=== PATIENT | female | born 1955 | race Caucasian/White ===

== ENCOUNTER 2020-09-22 08:02 | Outpatient (RCR) | payer OTHER, SELFPAY ==
[2020-09-22] MEDS: COVID-19 VACC, MRNA(PFIZER)/PF 30 MCG/0.3 ML SYRINGE IM (11:52)
[2020-10-13] MEDS: COVID-19 VACC, MRNA(PFIZER)/PF 30 MCG/0.3 ML SYRINGE IM (11:47)
== END 2020-12-15 23:59 ==
LOC: IMMUN 08:02
PROVIDERS: Referring Provider Family Medicine; Visit Provider Family Medicine
DX: Z23 Encounter for immunization (principal)
CPT/HCPCS: 0001A; 0002A; 91300

== ENCOUNTER → 2022-11-10 | Outpatient (CLI) | payer MEDICARE, OTHER, SELFPAY ==
--- NOTE | 2022-11-10 07:16 | MRI_ITS ---
EXAM: MR HEAD WITHOUT AND WITH INTRAVENOUS CONTRAST CLINICAL INDICATION: DIZZINESS, UNSTEADINESS TECHNIQUE: Multiplanar and multisequence MR images of the brain were obtained without and with intravenous contrast. CONTRAST: 9 ML IV CLARISCAN COMPARISON: No relevant prior studies available. FINDINGS: BRAIN AND EXTRA-AXIAL SPACES: Following IV contrast administration, there are no abnormally enhancing lesions intra-axially and extra-axially. No intra- or extra-axial hemorrhage. No evidence of acute infarct. No intracranial mass or mass effect. There is preservation of the hayes/white matter interface. Posterior fossa structures are unremarkable. Ventricles are appropriate for age. No hydrocephalus. Basal cisterns are patent. No focal signal abnormalities throughout the brain parenchyma in all pulse sequences. SELLA: Unremarkable. Normal sella turcica, pituitary gland, infundibular stalk, optic chiasm and hypothalamus. AUDITORY SYSTEM: Unremarkable. The internal auditory canals are patent. BONES/JOINTS: Unremarkable. No discrete lytic or blastic abnormalities. SINUSES: Unremarkable as visualized. Clear. MASTOID AIR CELLS: Unremarkable as visualized. Clear. ORBITS: Unremarkable as visualized. Both globes, extraocular muscles, optic nerves and retrobulbar fat appear unremarkable. VASCULATURE: Unremarkable as visualized. Normal flow voids in the major intracranial circulation. MRI/Brain W/WO Contrast IMPRESSION: Normal MRI brain with and without contrast. Electronically Signed: Rafael Castellano MD at 15:09 EDT ,
[2022-11-10 08:23] LABS: CREATININE FINGERSTICK < 0.90 mg/dL (0.55-1.02); EGFR FINGERSTICK > 60 mL/min (>60)
== END | disposition home or self-care (01) ==
LOC: MRI 07:11
PROVIDERS: PCP Family Medicine
DX: R26.81 Unsteadiness on feet (principal); R42 Dizziness and giddiness
CPT/HCPCS: 70553; A9575

== ENCOUNTER → 2023-05-16 | Outpatient (CLI) | payer MEDICARE, OTHER, SELFPAY ==
[2023-05-16 15:32] LABS: Vitamin D,25 Hydroxy 67.1 ng/mL
[2023-05-16 15:45] LABS: ALB/GLOB Ratio 0.7 RATIO (0.9-2.4); AST(SGOT) 64 U/L (15-37); Alanine Aminotransfer ALT/SGPT 56 U/L (13-56); Albumin, Serum 2.9 g/dL (3.2-5.0); Alkaline Phosphatase 94 U/L (45-117); Anion Gap 1 (5-15); BUN 17 mg/dL (7-18); BUN/Creat Ratio 34.1 RATIO (10-20); Calcium,Total 8.6 mg/dL (8.5-10.1); Chloride 105 mmol/L (98-107); Cholesterol 170 mg/dL (200); EST Glomerular Filtration Rate 131 mL/min (>60); Est Glom Filt Rate - Afr Amer 159 mL/min (>60); Globulin 4.2 g/dL (2.2-4.2); Glucose 86 mg/dL (74-106); High Density Lipoprotein 32 mg/dL; Potassium 4.4 mmol/L (3.5-5.1); Protein, Total 7.1 g/dL (6.4-8.2); Sodium Level 136 mmol/L (136-145); T4 Free Direct 1.39 ng/dL (0.76-1.46); Thyroid Stim Hormone (TSH) 0.57 uIU/mL (0.358-3.74); Triglycerides 66 mg/dL; Very Low Density Lipoprotein 13 mg/dL (5-40)
== END | disposition home or self-care (01) ==
LOC: MFPLAB 12:25
PROVIDERS: Family Medicine; PCP Family Medicine; Visit Provider Family Medicine
DX: Z13.6 Encounter for screening for cardiovascular disorders (principal)
CPT/HCPCS: 36415; 80053; 80061; 82306; 84439; 84443

== ENCOUNTER → 2023-10-26 | Outpatient (CLI) | payer MEDICARE, OTHER, SELFPAY ==
[2023-10-26 10:51] LABS: Absolute Lymphocyte Count 1.72 X10^3/uL (0.83-4.51); Absolute Neutrophil Count 2.1 X10^3/uL (2.0-7.7); Basophil# 0.05 X10^3/uL; Basophil% 1.1 % (0-1); Eosinophil# 0.12 X10^3/uL; Eosinophils% 2.7 % (0-5); Hematocrit 38.9 % (37-47); Hemoglobin 11.7 g/dL (12.0-15.0); Lymphocyte # 1.72 X10^3/ul (0.83-4.51); Lymphocyte % 38.5 % (19-41); Mean Corp Hgb Conc 30.1 g/dL (32-36); Mean Corpuscular Hgb 26.1 pg (27.0-32.0); Mean Corpuscular Volume 86.6 fL (81-99); Mean Platelet Vol. 11.5 fl (6.2-12.0); Monocyte# 0.51 X10^3/uL; Monocyte% 11.4 % (0-10); NRBC Flagged by Analyzer 0 % (0-5); Neutrophil # 2.06 X10^3/uL (2.7-7.7); Neutrophil % 46.1 % (47-70); Platelet Count 345 K/mm3 (150-450); RBC Distribution Width SD 47.6 fl (35.1-43.9); Red Blood Count 4.49 M/mm3 (4.2-5.4); White Blood Count 4.5 K/mm3 (4.4-11.0)
[2023-10-26 10:53] LABS: Erythrocyte Sedimentation Rate 21 mm/hr (0-30)
[2023-10-26 11:17] LABS: Hepatitis B Surface Antibody Non-Reactive
[2023-10-26 11:29] LABS: ALB/GLOB Ratio 0.6 RATIO (0.9-2.4); AST(SGOT) 45 U/L (15-37); Alanine Aminotransfer ALT/SGPT 46 U/L (13-56); Albumin, Serum 2.9 g/dL (3.2-5.0); Alkaline Phosphatase 116 U/L (45-117); Amylase 356 U/L (25-115); Anion Gap 1 (5-15); BUN 18 mg/dL (7-18); BUN/Creat Ratio 33.2 RATIO (10-20); CRP < 2.90 mg/L (0.0-3.0); Calcium,Total 8.6 mg/dL (8.5-10.1); Chloride 110 mmol/L (98-107); Creatinine, Serum 0.54 mg/dL (0.55-1.02); EST Glomerular Filtration Rate 119 mL/min (>60); Est Glom Filt Rate - Afr Amer 144 mL/min (>60); Ferritin 4 ng/mL (8-252); Globulin 4.5 g/dL (2.2-4.2); Glucose 88 mg/dL (74-106); Iron 57 ug/dL (50-170); Iron Binding Capacity,Total 402 ug/dL (250-450); PERCENT IRON SATURATION 14.2 % (15.0-55.0); Potassium 3.9 mmol/L (3.5-5.1); Protein, Total 7.4 g/dL (6.4-8.2); Sodium Level 139 mmol/L (136-145); Thyroid Stim Hormone (TSH) 1.08 uIU/mL (0.358-3.74)
[2023-10-27 14:09] LABS: ANTINUCLEAR ANTIBODIES DIRECT Negative (Negative); Alpha Antitrypsin Serum 162 mg/dL (101-187); Anti-Mitochondrial AB <20.0 Units (0.0-20.0)
[2023-10-27 15:08] LABS: Anti-Smooth Muscle ABS 8 Units (0-19); Ceruloplasmin 23.9 mg/dL (19.0-39.0); Endomysial Antibody IgA Negative (Negative); HEPATITIS B SURFACE AG Negative (Negative); Hep C Antibodies Non Reactive (Non Reactive); Hepatitis A AB, Total Positive (Negative); Hepatitis A IgM Antibody Negative (Negative); Hepatitis B Core AB IgM Negative (Negative); Immunoglobulin A 946 mg/dL (87-352); t-Transglutaminase IgA >100 U/mL (0-3)
== END | disposition home or self-care (01) ==
LOC: LAB 09:36
PROVIDERS: PCP Family Medicine
DX: R19.7 Diarrhea, unspecified (principal); R79.89 Other specified abnormal findings of blood chemistry
CPT/HCPCS: 36415; 80053; 80074; 82103; 82150; 82390; 82728; 82784; 83516; 83540; 83550; 84443; 85025; 85652; 86038; 86140; 86255; 86706; 86708

== ENCOUNTER → 2023-10-28 | Outpatient (CLI) | payer MEDICARE, OTHER, SELFPAY | END | disposition home or self-care (01) | LOC: LAB 07:35 → LABSPEC 07:37 | PROVIDERS: PCP Family Medicine | DX: R19.7 Diarrhea, unspecified (principal); R79.89 Other specified abnormal findings of blood chemistry | CPT/HCPCS: 82653; 82705; 83630; 83993; 87177; 87209; 87493 ==

== ENCOUNTER → 2023-10-31 | Outpatient (CLI) | payer MEDICARE, OTHER, SELFPAY ==
--- NOTE | 2023-10-31 08:04 | US_ITS ---
STUDY: ABDOMINAL ULTRASOUND - RIGHT UPPER QUADRANT REASON FOR VISIT: Female, 68 years old ELEVATED LFTS/DIARRHEA TECHNIQUE: Ultrasound evaluation of the right upper quadrant was performed with real-time and static hayes-scale imaging. TECHNICAL QUALITY: Adequate. COMPARISON: None. FINDINGS: Liver: The liver measures 14.5 cm. There is normal echogenicity of the liver. The bile ducts are within normal limits. There is hepatic color flow. The direction of portal flow is hepatopetal. There is a simple cyst measuring 1.3 cm x 1.7 cm x 1.2 cm in the right lobe of the liver. Gallbladder: Normal distended gallbladder. The gallbladder wall measures 1 mm. There is a negative sonographic Rivas''s sign. There is no pericholecystic fluid. There are no gallstones. Common Bile Duct (C.B.D.): The common bile duct measures 6 mm. Pancreas: Normal size of the head, body and tail of the pancreas. There is normal echogenicity of the pancreas. There is no demonstrated pancreatic mass or cyst. The pancreatic duct measures 3.2 mm. Right Kidney: Normal size of the right kidney. The right kidney measures 9.9 cm x 4.4 cm x 3.9 cm. Normal renal cortex. The right cortex measures 1 cm. There is no demonstrated renal mass or cyst. There is no right hydronephrosis. US/Abdomen Limited IMPRESSION: Cyst is seen in the right lobe of the liver. Mildly dilated pancreatic duct. Electronically Signed: Tito Shipley MD at 14:42 EDT ,
== END | disposition home or self-care (01) ==
LOC: US 08:02
PROVIDERS: PCP Family Medicine
DX: R19.7 Diarrhea, unspecified (principal); R79.89 Other specified abnormal findings of blood chemistry
CPT/HCPCS: 76705

== ENCOUNTER → 2023-11-03 | Outpatient (CLI) | payer MEDICARE, OTHER, SELFPAY ==
--- NOTE | 2023-11-03 12:48 | CT_ITS ---
STUDY: CT ABDOMEN AND PELVIS WITH CONTRAST REASON FOR EXAM: Female, 68 years old. 4 month history of diarrhea. RADIATION DOSAGE (If Supplied By Facility): CTDIvol = ( 9.13 ) mGy, DLP = ( 231.49 ) mGycm TECHNIQUE: Transaxial images were obtained from the dome of the diaphragm to the symphysis pubis with oral contrast. Oral and amp; IV Readi-CAT and amp; 100mL Isovue-300 was administered. Sagittal and coronal images were reconstructed. Individualized dose optimization techniques were used for this CT. COMPARISON: Comparison is made with prior sonogram of the abdomen dated October 31, 2023. FINDINGS: The visualized lung bases are unremarkable. The visualized portions of the heart are within normal limits. There is decreased attenuation of the liver consistent with steatosis. There is a 1.1 cm x 0.8 cm cyst in the lower aspect of the right lobe of the liver. Mild degree of central intrahepatic biliary ductal dilatation. The proximal portion of the common bile duct has a transverse dimension of 1.05 cm. Normal spleen. Normal pancreas. Normal bilateral adrenal glands. Normal right kidney. Normal left kidney. Normal visualized stomach. Normal small intestine. Normal colon. The patient is status post appendectomy. There is scattered atherosclerotic calcification of the abdominal aorta, without a demonstrated aneurysm. Normal inferior vena cava. Normal retroperitoneum. Normal urinary bladder. There is absence of the uterus consistent with a prior hysterectomy. Normal abdominal wall. Dextroscoliosis. CT/Abdomen/Pelvis WITH Contrast IMPRESSION: Mildly dilated intrahepatic biliary ducts and proximal common bile duct. Small right hepatic cyst. The patient is status post appendectomy and hysterectomy. Electronically Signed: Tito Shipley MD at 14:17 EDT ,
== END | disposition home or self-care (01) ==
PROVIDERS: PCP Family Medicine; Referring Provider Internal Medicine Gastroenterology; Visit Provider Internal Medicine Gastroenterology
DX: R19.7 Diarrhea, unspecified (principal); R79.89 Other specified abnormal findings of blood chemistry; R74.8 Abnormal levels of other serum enzymes
CPT/HCPCS: 74177; Q9967

== ENCOUNTER → 2024-02-05 | Outpatient (CLI) | payer MEDICARE, OTHER, SELFPAY ==
[2024-02-05 09:32] LABS: Absolute Lymphocyte Count 2.08 X10^3/uL (0.83-4.51); Basophil# 0.07 X10^3/uL; Basophil% 1.3 % (0-1); Eosinophil# 0.69 X10^3/uL; Eosinophils% 12.6 % (0-5); Hematocrit 38.1 % (37-47); Hemoglobin 11.7 g/dL (12.0-15.0); Lymphocyte # 2.08 X10^3/ul (0.83-4.51); Mean Corp Hgb Conc 30.7 g/dL (32-36); Mean Corpuscular Hgb 26.3 pg (27.0-32.0); Mean Corpuscular Volume 85.6 fL (81-99); Mean Platelet Vol. 9.6 fl (6.2-12.0); Monocyte# 0.66 X10^3/uL; Monocyte% 12.1 % (0-10); NRBC Flagged by Analyzer 0 % (0-5); Neutrophil # 1.96 X10^3/uL (2.7-7.7); Neutrophil % 35.8 % (47-70); Platelet Count 334 K/mm3 (150-450); RBC Distribution Width SD 49.8 fl (35.1-43.9); Red Blood Count 4.45 M/mm3 (4.2-5.4); White Blood Count 5.5 K/mm3 (4.4-11.0)
[2024-02-05 10:44] LABS: ALB/GLOB Ratio 0.7 RATIO (0.9-2.4); AST(SGOT) 30 U/L (15-37); Alanine Aminotransfer ALT/SGPT 34 U/L (13-56); Albumin, Serum 3.1 g/dL (3.2-5.0); Alkaline Phosphatase 133 U/L (45-117); Amylase 78 U/L (25-115); Anion Gap 2 (5-15); BUN 20 mg/dL (7-18); BUN/Creat Ratio 27.1 RATIO (10-20); Calcium,Total 9.1 mg/dL (8.5-10.1); Chloride 105 mmol/L (98-107); Creatinine, Serum 0.74 mg/dL (0.55-1.02); EST Glomerular Filtration Rate 83 mL/min (>60); Est Glom Filt Rate - Afr Amer 101 mL/min (>60); Ferritin 4 ng/mL (8-252); Globulin 4.5 g/dL (2.2-4.2); Glucose 107 mg/dL (74-106); Iron 48 ug/dL (50-170); Iron Binding Capacity,Total 451 ug/dL (250-450); PERCENT IRON SATURATION 10.6 % (15.0-55.0); Potassium 4.4 mmol/L (3.5-5.1); Protein, Total 7.6 g/dL (6.4-8.2); Sodium Level 136 mmol/L (136-145)
[2024-02-05 14:43] LABS: Vitamin B12 377 pg/mL (211-911)
== END | disposition home or self-care (01) ==
PROVIDERS: PCP Family Medicine
DX: K90.0 Celiac disease (principal); R94.5 Abnormal results of liver function studies
CPT/HCPCS: 36415; 80053; 82150; 82607; 82728; 82746; 83540; 83550; 85025

== ENCOUNTER → 2024-04-15 | Outpatient (CLI) | payer MEDICARE, OTHER, SELFPAY ==
[2024-04-15 10:38] LABS: Absolute Lymphocyte Count 2.05 X10^3/uL (0.83-4.51); Absolute Neutrophil Count 1.6 X10^3/uL (2.0-7.7); Basophil# 0.05 X10^3/uL; Basophil% 1.1 % (0-1); Eosinophil# 0.29 X10^3/uL; Eosinophils% 6.4 % (0-5); Hematocrit 40.6 % (37-47); Hemoglobin 12.7 g/dL (12.0-15.0); Lymphocyte # 2.05 X10^3/ul (0.83-4.51); Lymphocyte % 45.5 % (19-41); Mean Corp Hgb Conc 31.3 g/dL (32-36); Mean Corpuscular Hgb 28.2 pg (27.0-32.0); Monocyte# 0.53 X10^3/uL; Monocyte% 11.8 % (0-10); NRBC Flagged by Analyzer 0 % (0-5); Neutrophil # 1.58 X10^3/uL (2.7-7.7); Platelet Count 297 K/mm3 (150-450); RBC Distribution Width CV 16.4 % (11.6-14.6); RBC Distribution Width SD 54.3 fl (35.1-43.9); Red Blood Count 4.51 M/mm3 (4.2-5.4); White Blood Count 4.5 K/mm3 (4.4-11.0)
[2024-04-15 12:26] LABS: Ferritin 5 ng/mL (8-252); Iron 92 ug/dL (50-170); Iron Binding Capacity,Total 421 ug/dL (250-450); PERCENT IRON SATURATION 21.9 % (15.0-55.0)
[2024-04-16 16:11] LABS: Deamidated Gliadin IgA >150 units (0-19); Deamidated Gliadin IgG >150 units (0-19); Endomysial Antibody IgA Positive (Negative); Immunoglobulin A 127 mg/dL (87-352); t-Transglutaminase IgA >100 U/mL (0-3)
== END | disposition home or self-care (01) ==
LOC: LAB 10:20
PROVIDERS: PCP Family Medicine; Referring Provider Internal Medicine Gastroenterology; Visit Provider Internal Medicine Gastroenterology
DX: D64.9 Anemia, unspecified (principal)
CPT/HCPCS: 36415; 82728; 82746; 82784; 83516; 83540; 83550; 85025; 86255

== ENCOUNTER 2024-06-19 12:58 | Emergency (ER) | payer MEDICARE, OTHER, SELFPAY ==
[2024-06-19 12:58] VITALS: BP 127/71; PULSE 68; RESP 16; TEMP 36.6; O2SAT 99; BMI 18.3
[2024-06-19] MEDS: Morphine 4 MG/ML Syringe IM (14:19)
[2024-06-19] MEDS: Ondansetron ODT 4 MG Tablet 8 MG PO (14:19)
--- NOTE | 2024-06-19 14:34 | ED.VIS.GI ---
HPI HPI - GI History of Present Illness Chief Complaint: Abd Pain Informant: patient and spouse/S.O. Narrative Narrative: Patient states she has had a cold recently, she coughed really hard about 3.5 hours prior to evaluation and suddenly felt a painful bulge in her right lower abdomen/groin. She has had no nausea or vomiting with this. This occurred about a month ago but she laid down with a heating pad and it went away felt better until now. She has been having normal bowel movements. She has had prior hysterectomy remotely. [facility] Medical History (Updated 06/19/24 @ 15:[address] Efrain Garrison MD) Lipoma Thyroid disease Home Medications ?Medication ?Instructions ?Recorded ?Last Taken ?Type levothyroxine 150 mcg tablet 150 mcg PO DAILY 06/19/24 Unknown History cuweqzzf-wpz-panjh acid 0.4 1 tab PO DAILY 06/19/24 Unknown History mg-lycopene 300 mcg-lutein 250 mcg tablet (Centrum Silver) Allergy/AdvReac Type Severity Reaction Status Date / Time gluten AdvReac Abd Verified 06/19/24 13:00 cramps/diarrhea milk (dairy) AdvReac Abd Verified 06/19/24 13:00 cramps/diarrhea Surgical History (Updated 06/19/24 @ 14:[address] Efrain Garrison MD) H/O: hysterectomy Social History Smoking Status: Never smoker ROS ROS ED Constitutional Constitutional ED: Denies chills or fever(s) Eyes Eyes: Denies change in vision or diplopia ENT ENT ED: Denies rhinorrhea or sore throat Cardiovascular Cardiovascular: Denies chest pain or palpitations Respiratory/Chest Respiratory/Chest: Denies cough or dyspnea Gastrointestinal Gastrointestinal: Reports abdominal pain; Denies diarrhea, nausea or vomiting Genitourinary Genitourinary ED: Denies dysuria or hematuria Musculoskeletal Musculoskeletal: Denies back pain or neck pain Integumentary Denies abscess or rash Neurologic Neurologic: Denies headache(s), paresthesias or weakness Psychiatric Psychiatric: Denies anxiety or suicidal thoughts EXAM Physical Exam Const Vital Signs: 06/19/24 12:58 06/19/24 14:58 06/19/24 15:18 Temperature 97.8 F 98 F Temperature Source Oral Pulse Rate 68 57 L 59 L Respiratory Rate 16 16 18 Blood Pressure 127/71 H 99/62 98/74 Blood Pressure Mean 89 74 82 Pulse Ox 99 94 95 Oxygen Delivery Method Room Air Room Air Positive well nourished and well developed General Appearance ED: well developed and NAD HEENT Reports moist mucous membranes normocephalic and atraumatic Eyes PERRL and EOMs intact bilaterally Neck full ROM and supple Resp normal respiratory effort and clear to auscultation bilaterally Cardio regular rate, regular rhythm and no murmurs GI non-distended GI Narrative: Tender palpable lump in the right inguinal area, does not progress into the labia. Becomes more prominent when I examined the patient while standing. Not easily reducible. No overlying erythema. Auscultation: normoactive bowel sounds Palpation: soft Back/Spine no CVA tenderness General Back: other FROM Extremity normal to inspection General Extremety ED: Negative for edema, pulses abnormal or tenderness General Extremity: Negative for edema or pulses abnormal Neuro oriented x3, CN's II-XII intact bilaterally and no sensory deficits noted Sensorium / Orientation: awake and alert Motor Exam: strength 5/5 throughout Skin no rashes or lesions noted and no wounds MDM MDM MDM Narrative Medical decision making narrative: History and exam is consistent with a direct right inguinal hernia. Given that it is tender and not easily reduced, I laid the patient spine with an ice pack for 30 minutes, she requested some pain medication and was amenable to an injection of morphine and prophylactic Zofran. On reevaluation, patient's still lying supine I applied gentle pressure and was able to get a good palpable reduction. Patient stood up and the reduction maintained. She feels a lot better. Appropriate instructions and reasons to return, follow-up with surgery as an outpatient. Discharge Plan Triage Chief Complaint: Abd Pain ED Provider: Efrain Garrison Dx/Rx/DC Orders Clinical Impression: Direct inguinal hernia of right side Instructions: ED Hernia (Adult) Prescriptions: No Action levothyroxine 150 mcg tablet 150 mcg PO DAILY Centrum Silver 0.4 mg-300 mcg- 250 mcg tablet 1 tab PO DAILY Primary Care Provider: Trent Mckinney Referrals: Trent Mckinney MD [Primary Care Provider] - Arthur Romero MD [Med Staff - Active Staff] - (call for appt) Print Language: Belarusian Disposition Disposition: Home, Self Care
[2024-06-19 14:58] VITALS: BP 99/62; PULSE 57; RESP 16; O2SAT 94
[2024-06-19 15:18] VITALS: BP 98/74; PULSE 59; RESP 18; TEMP 36.6; O2SAT 95
== END 2024-06-19 15:38 | disposition home or self-care (01) ==
PROVIDERS: Emergency Provider Emergency Medicine; PCP Family Medicine; Referring Provider Emergency Medicine; Visit Provider Emergency Medicine
DX: K40.90 Unilateral inguinal hernia, without obstruction or gangrene, not specified as recurrent (principal); E07.9 Disorder of thyroid, unspecified; Z90.710 Acquired absence of both cervix and uterus; Z79.890 Hormone replacement therapy; Z79.899 Other long term (current) drug therapy
CPT/HCPCS: 96372; 99282

== ENCOUNTER → 2024-06-19 | Outpatient (CLI) | payer MEDICARE, OTHER, SELFPAY ==
--- NOTE | 2024-06-19 08:47 | BI_ITS ---
MAMMOGRAPHY - BILATERAL SCREENING REASON FOR EXAM: Female, 69 years old. Routine annual screening examination. PERTINENT HISTORY: Non-contributory. TECHNIQUE: Digital bilateral breast deepthi (3D mammographic acquisition) in the CC and MLO projections. 2-D mediolateral oblique (MLO) and craniocaudad (CC) views of both breasts were obtained. CAD: Full Field Digital Mammography with Computer Added Detection was performed. COMPARISON: Comparison is made with prior outside examination dated March 01, 2022. FINDINGS: Breast Composition: The breasts are heterogeneously dense, which may obscure small masses. There are no dominant masses or suspicious calcifications. Stable bilateral axillary lymph nodes. No other significant abnormalities are identified. There has been no significant change since the prior study. BI/SCRN MAMM (CAD)W/DEEPTHI BILAT IMPRESSION: Stable bilateral screening mammogram. Yearly follow-up mammogram recommended. (A) ASSESSMENT CATEGORY: BIRADS Category 2: Benign. A letter regarding these results will be sent to the patient by the facility within 30 days. Approximately 10% of breast cancers are not detected by mammography. A normal mammogram should not delay biopsy of a clinically suspicious abnormality. [id number] Electronically Signed: Tito Shipley MD at 11:16 EST ,
== END | disposition home or self-care (01) ==
LOC: OPBI 08:46
PROVIDERS: PCP Family Medicine; Referring Provider Family Medicine; Visit Provider Family Medicine
DX: Z12.31 Encounter for screening mammogram for malignant neoplasm of breast (principal)
CPT/HCPCS: 77063; 77067

== ENCOUNTER 2024-07-18 05:35 | Day surgery (SDC) | payer MEDICARE, OTHER, SELFPAY ==
--- NOTE | 2024-07-08 08:40 | EKG12_ITS ---
Test Reason : PRE OP Blood Pressure : */* mmHG Vent. Rate : 78 BPM Atrial Rate : 78 BPM P-R Int : 136 ms QRS Dur : 90 ms QT Int : 366 ms P-R-T Axes : 79 83 75 degrees QTcB Int : 417 ms Normal sinus rhythm Possible Left atrial enlargement Borderline ECG Confirmed by NICA WU, JUNI ([id number]), city editor CASANDRA HALE ([id number]) on 07/08/2024 10:08:11 AM Referred By: Arthur Romero Confirmed By: JUNI YOUSIF MD
[2024-07-08 09:23] LABS: Hematocrit 41.9 % (37-47); Hemoglobin 13.3 g/dL (12.0-15.0); Mean Corp Hgb Conc 31.7 g/dL (32-36); Mean Corpuscular Hgb 30.1 pg (27.0-32.0); Mean Corpuscular Volume 94.8 fL (81-99); Mean Platelet Vol. 10.9 fl (6.2-12.0); Platelet Count 279 K/mm3 (150-450); RBC Distribution Width CV 14.2 % (11.6-14.6); RBC Distribution Width SD 49.4 fl (35.1-43.9); Red Blood Count 4.42 M/mm3 (4.2-5.4); White Blood Count 5.9 K/mm3 (4.4-11.0)
[2024-07-08 10:04] LABS: Anion Gap 6 (5-15); BUN 17 mg/dL (7-18); BUN/Creat Ratio 25.2 RATIO (10-20); Calcium,Total 9.3 mg/dL (8.5-10.1); Chloride 108 mmol/L (98-107); Creatinine, Serum 0.67 mg/dL (0.55-1.02); EST Glomerular Filtration Rate 92 mL/min (>60); Est Glom Filt Rate - Afr Amer 112 mL/min (>60); Glucose 82 mg/dL (74-106); Sodium Level 141 mmol/L (136-145); Thyroid Stim Hormone (TSH) 0.307 uIU/mL (0.358-3.740)
--- NOTE | 2024-07-09 15:49 | PAT.ANE_ITS ---
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 When Was Last Pacemaker Check QUESTION #4 FULL TEXT: You/Your Family Experience fever (hyperthermia) with Anesthesia Last Oral Intake Last Oral intake: Last Oral Intake NPO since Meds taken in AM with sips of water? 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 Female Yes 07/02/24 11:55 HX of Motion Sickness No 07/02/24 11:55 HX of N/V After Surgery Yes 07/02/24 11:55 Non-Smoker Yes 07/02/24 11:55 Duration of Surgery greater Yes 07/02/24 11:55 than 60 minutes Number of Risk Factors 4 07/02/24 11:55 PONV Score Severe Risk 07/02/24 11:55 Height & Weight Height & Weight: Anesthesia: Height & Weight Height 5 ft 2 in 06/24/24 08:39 Respiratory Assessment Respiratory Assessment - database programmer: Respiratory Tract Infection Hx - database programmer Hx Respiratory Tract Infection No 07/02/24 11:55 STOP Sleep Apnea STOP Sleep Apnea - database programmer: STOP Sleep Apnea - database programmer Hx Hypertension No 07/02/24 11:55 Hx Sleep Apnea No 07/02/24 11:55 CPAP BIPAP Do you snore loudly (louder No 07/02/24 11:55 than talking or can be heard Do you often feel tired/ No 07/02/24 11:55 fatigued/ sleepy during daytime? Has anyone observed you stop No 07/02/24 11:55 breathing during sleep? STOP Results Negative 07/02/24 11:55 QUESTION #5 FULL TEXT : Do you snore loudly (louder than talking or can be heard through closed doors)? 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 Specify any problems Hx of Preganancy in last 3 No 07/02/24 11:55 Months Nurse Filling Out Transfusion DSCHRIBER 07/02/24 11:55 & Questions: Date: 07/02/24 07/02/24 11:55 Time: 11:56 07/02/24 11:55 Patient unable to answer at this time (ie. confused, unrespo /Reproduction History /Reproductive History - database programmer: /Reproductive Hx- database programmer Hx Now No 07/02/24 11:55 Gestational Age (in weeks): EDC: Hx Hx Para Hx Section SAB No 07/02/24 11:55 PFSH Medical History (Updated 07/02/24 @ 12:00 by Blanca Patino) Wears glasses Post-menopausal Arthritis History of celiac disease Anemia Asthma Former smoker Hx of fracture of wrist Lipoma Thyroid disease Home Medications ?Medication ?Instructions ?Recorded ?Last Taken ?Type levothyroxine 150 mcg tablet 150 mcg PO DAILY 06/19/24 Unknown History ikphoqmt-xxd-grvpw acid 0.4 1 tab PO DAILY 06/19/24 Unknown History mg-lycopene 300 mcg-lutein 250 mcg tablet (Centrum Silver) albuterol sulfate 90 mcg/actuation 2 puff inhalation Q4H PRN PRN 07/02/24 Unknown History aerosol inhaler (Ventolin HFA) dyspnea calcium carbonate 600 mg PO DAILY 07/02/24 Unknown History cholecalciferol (vitamin D3) 25 25 mcg PO DAILY 07/02/24 Unknown History mcg (1,000 unit) capsule (Vitamin D3) magnesium 250 mg tablet 250 mg PO DAILY 07/02/24 Unknown History omega 0-rpr-ydi-fish oil 1,200 mg 1 cap PO DAILY 07/02/24 Unknown History (144 mg-216 mg) capsule (Fish Oil) Allergy/AdvReac Type Severity Reaction Status Date / Time gluten AdvReac Abd Verified 07/02/24 11:53 cramps/diarrhea milk (dairy) AdvReac Abd Verified 07/02/24 11:53 cramps/diarrhea Surgical History (Updated 07/02/24 @ 12:00 by Blanca Patino) Hx of colonoscopy Hx of laparoscopy S/P bunionectomy H/O: hysterectomy Social History Smoking Status: Former smoker alcohol intake: never Audit: Pertinent Findings Pertinent Findings EKG Perinent findings: 07/08/2024 normal sinus rhythm possible left atrial enlargement rate of 78 bpm Recommendation Anesthesia Recommendation Anesthesia recommendation: OPTIMIZED for anesthesia
[2024-07-18] VITALS (14 sets, daily range): BP systolic 82–130; BP diastolic 46–108; PULSE 74–86; RESP 12–18; TEMP 36.3–37.4; O2SAT 90–99; BMI 17.7
[2024-07-18] MEDS: 0.9% Normal Saline (1000mL) 1,000 ML 15 ML IV ×2 (06:21→09:15)
--- NOTE | 2024-07-18 06:51 | PRE.ANES_ITS ---
ASA Classification* ASA Classification ASA Classification: 2 Assessment & Plan Anesthesia* Anesthesia Assessment Anesthesia Assessment: Discussed sedation and/or anesthesia options, risks, benefits, and alternatives with patient/parents/legal guardian/POA. Questions invited. The patient/parents/legal guardian/POA seems to understand and agrees to proceed with anesthesia plan. Reviewed the physical assessment, medical history, allergy history and patient home medications list prior to surgery/procedure/anesthetic and documented any changes. Performed airway and anesthesia risk assessments. Anesthesia Type Anesthesia Type: General (hx n/v , scopalamine patch placed) Anesthesia Focused Assessment* Temperature: 99.3 F Pulse Rate: 86 Blood Pressure: 109/58 Respiratory Rate: 16 Pulse Ox: 96 Airway Assessment Mouth opens: >3 cm Mallampati Score: II Focused Labs Anesthesia Preop lab: CBC WBC 5.9 K/mm3 (4.4-11.0) 07/08/24 08:56 RBC 4.42 M/mm3 (4.2-5.4) 07/08/24 08:56 Hgb 13.3 g/dL (12.0-15.0) 07/08/24 08:56 Hct 41.9 % (37-47) 07/08/24 08:56 Plt Count 279 K/mm3 (150-450) 07/08/24 08:56 CHEMISTRY Potassium 4.0 mmol/L (3.5-5.1) 07/08/24 08:56 Sodium 141 mmol/L (136-145) 07/08/24 08:56 BUN 17 mg/dL (7-18) 07/08/24 08:56 Creatinine 0.67 mg/dL (0.55-1.02) 07/08/24 08:56 Glucose 82 mg/dL (74-106) 07/08/24 08:56 TSH 0.307 uIU/mL (0.358-3.740) L 07/08/24 08:56 COAG Pre-Assessment Diagnosis/Proposed Procedure Planned Operative Procedure(s): ROBOTIC RIGHT INGUINAL HERNIA REPAIR WITH MESH Anesthesia History 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 When Was Last Pacemaker Check QUESTION #4 FULL TEXT: You/Your Family Experience fever (hyperthermia) with Anesthesia Last Oral Intake Last Oral intake: Last Oral Intake NPO since 20:30 07/18/24 06:19 Meds taken in AM with sips of Yes 07/18/24 06:19 water? 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 Female Yes 07/02/24 11:55 HX of Motion Sickness No 07/02/24 11:55 HX of N/V After Surgery Yes 07/02/24 11:55 Non-Smoker Yes 07/02/24 11:55 Duration of Surgery greater Yes 07/02/24 11:55 than 60 minutes Number of Risk Factors 4 07/02/24 11:55 PONV Score Severe Risk 07/02/24 11:55 Height & Weight Height & Weight: Anesthesia: Height & Weight Height 5 ft 2 in 07/18/24 06:19 Weight: 44 kg 07/18/24 06:19 Body Mass Index (BMI) 17.7 07/18/24 06:19 Respiratory Assessment Respiratory Assessment - railcar foreman: Respiratory Tract Infection Hx - railcar foreman Hx Respiratory Tract Infection No 07/02/24 11:55 STOP Sleep Apnea STOP Sleep Apnea - railcar foreman: STOP Sleep Apnea - railcar foreman Hx Hypertension No 07/02/24 11:55 Hx Sleep Apnea No 07/02/24 11:55 CPAP BIPAP Do you snore loudly (louder No 07/02/24 11:55 than talking or can be heard Do you often feel tired/ No 07/02/24 11:55 fatigued/ sleepy during daytime? Has anyone observed you stop No 07/02/24 11:55 breathing during sleep? STOP Results Negative 07/02/24 11:55 QUESTION #5 FULL TEXT : Do you snore loudly (louder than talking or can be heard through closed doors)? 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 Specify any problems Hx of Preganancy in last 3 No 07/02/24 11:55 Months Nurse Filling Out Transfusion DSCHRIBER 07/02/24 11:55 & Questions: Date: 07/02/24 07/02/24 11:55 Time: 11:56 07/02/24 11:55 Patient unable to answer at this time (ie. confused, unrespo /Reproduction History /Reproductive History - railcar foreman: /Reproductive Hx- railcar foreman Hx Now No 07/02/24 11:55 Gestational Age (in weeks): EDC: Hx Hx Para Hx Section SAB No 07/02/24 11:55 Active Medications Active Medications: Current Medications Generic Name Dose Route Start Last Admin Trade Name Freq PRN Reason Stop Dose Admin Cefazolin Sodium 2 gm/ N/A 20 mls @ 400 mls/hr 07/18/24 07:30 IV 07/18/24 07:32 PREOP ONE Sodium Chloride 1,000 mls @ 15 mls/hr 07/18/24 06:00 07/18/24 06:21 IV 07/23/24 19:19 15 mls/hr .Q48H LUCY Administration Protocol PFS Medical History Wears glasses Post-menopausal Arthritis History of celiac disease Anemia Asthma Former smoker Hx of fracture of wrist Lipoma Thyroid disease Home Medications ?Medication ?Instructions ?Recorded ?Last Taken ?Type levothyroxine 150 mcg tablet 150 mcg PO DAILY 06/19/24 07/18/24 History fkhzxlwd-agn-mrrxp acid 0.4 1 tab PO DAILY 06/19/24 07/17/24 History mg-lycopene 300 mcg-lutein 250 mcg tablet (Centrum Silver) albuterol sulfate 90 mcg/actuation 2 puff inhalation Q4H PRN PRN 07/02/24 Unknown History aerosol inhaler (Ventolin HFA) dyspnea calcium carbonate 600 mg PO DAILY 07/02/24 07/15/24 History cholecalciferol (vitamin D3) 25 25 mcg PO DAILY 07/02/24 07/15/24 History mcg (1,000 unit) capsule (Vitamin D3) magnesium 250 mg tablet 250 mg PO DAILY 07/02/24 07/15/24 History omega 8-iyv-sdf-fish oil 1,200 mg 1 cap PO DAILY 07/02/24 07/14/24 History (144 mg-216 mg) capsule (Fish Oil) Allergy/AdvReac Type Severity Reaction Status Date / Time gluten AdvReac Abd Verified 07/18/24 06:11 cramps/diarrhea milk (dairy) AdvReac Abd Verified 07/18/24 06:11 cramps/diarrhea Surgical History Hx of colonoscopy Hx of laparoscopy S/P bunionectomy H/O: hysterectomy Social History Smoking Status: Former smoker alcohol intake: never Review of Systems (Anesthesia) ROS Narrative System reviewed and no additional complaints, except as documented.
--- NOTE | 2024-07-18 07:31 | PCM.HP.STD ---
HPI - General General Date of Admission: 07/18/24 Date of Service: 07/18/24 Chief Complaint: Right inguinal hernia HPI Narrative JOAN EARLY, is a 69 F who presents today for elective robotic right inguinal hernia repair with mesh. [facility] Medical History (Updated 07/18/24 @ 07:[address] Arthur Romero MD) Inguinal hernia of right side without obstruction or gangrene Wears glasses Post-menopausal Arthritis History of celiac disease Anemia Asthma Former smoker Hx of fracture of wrist Lipoma Thyroid disease Home Medications ?Medication ?Instructions ?Recorded ?Last Taken ?Type levothyroxine 150 mcg tablet 150 mcg PO DAILY 06/19/24 07/18/24 History chdigjib-rmq-xpowo acid 0.4 1 tab PO DAILY 06/19/24 07/17/24 History mg-lycopene 300 mcg-lutein 250 mcg tablet (Centrum Silver) albuterol sulfate 90 mcg/actuation 2 puff inhalation Q4H PRN PRN 07/02/24 Unknown History aerosol inhaler (Ventolin HFA) dyspnea calcium carbonate 600 mg PO DAILY 07/02/24 07/15/24 History cholecalciferol (vitamin D3) 25 25 mcg PO DAILY 07/02/24 07/15/24 History mcg (1,000 unit) capsule (Vitamin D3) magnesium 250 mg tablet 250 mg PO DAILY 07/02/24 07/15/24 History omega 3-mpp-nvj-fish oil 1,200 mg 1 cap PO DAILY 07/02/24 07/14/24 History (144 mg-216 mg) capsule (Fish Oil) Allergy/AdvReac Type Severity Reaction Status Date / Time gluten AdvReac Abd Verified 07/18/24 06:11 cramps/diarrhea milk (dairy) AdvReac Abd Verified 07/18/24 06:11 cramps/diarrhea Surgical History Hx of colonoscopy Hx of laparoscopy S/P bunionectomy H/O: hysterectomy Social History Smoking Status: Former smoker alcohol intake: never Vital Signs Vital Signs Vital Signs: 07/18/24 06:17 07/18/24 06:19 07/18/24 06:51 Temperature 99.3 F H 99.3 F H Temperature Source Temporal Pulse Rate 86 86 Respiratory Rate 16 16 Respiratory Pattern Normal Blood Pressure 109/58 L 109/58 L Blood Pressure Mean 75 Blood Pressure Source Monitor Blood Pressure Position Semi-Fowlers Blood Pressure Location Right Arm Pulse Ox 96 96 Oxygen Delivery Method Room Air Weight Weight: 97 lb 0.054 oz Body Mass Index (BMI) 17.7 Physical Exam Const alert, oriented x3 and no apparent distress Results Lab / Micro Data 07/08/24 08:56 07/08/24 08:56 Assessment & Plan Assessment/Plan (1) Inguinal hernia of right side without obstruction or gangrene: PLAN: Plan Patient is a 69-year-old female with a right inguinal hernia. I have offered her a robotic right inguinal hernia repair with mesh. We discussed the details of the planned procedure and she wishes to proceed. Surgery will begin momentarily
[2024-07-18] MEDS: Cefazolin 2 GM in Syringe IV (07:42)
[2024-07-18] MEDS: Gentamicin 80 MG/2 ML Vial (07:59)
[2024-07-18] MEDS: Bupiv/Epi 0.25% 30 ML Vial (07:59)
--- NOTE | 2024-07-18 09:52 | DCINST_ITS ---
Discharge Instructions Diet Discharge Diet: Light diet - advance as tolerated Activity Discharge Activity: Return to Normal Activity and May Shower May shower in (days): 1 Ice area for (Minutes): 30 Lifting Restrictions: Keep lifting under 20 pounds for 6 weeks Dressing / Incision Call your doctor if your incision/area has: Continuous Slow Oozing, Sudden Increased Bleeding, Increased Pain/ Swelling, Increased Redness, Foul Smelling Discharge and Swelling at the incision site Call your doctor if you observe: Fever of 101 or Higher Cleanse incision/area with: Soap & Water Follow Up Care Please Follow Up With: Arthur Romero MD When: 2 weeks Test Results: Test results from this visit will be discussed in further detail at your follow- up appointment, if applicable. Discharge Plan Admission Primary Reason for Your Visit: Right inguinal hernia repair Attending Provider: Arthur Romero Primary Care Provider: Trent Mckinney Instructions Print Language: Danish Discharge Orders/Prescriptions Prescriptions: New oxycodone-acetaminophen [Percocet] 5-325 mg tablet 1 tab PO Q8H PRN (Reason: pain) 3 Days Qty: 10 0RF Continued levothyroxine 150 mcg tablet 150 mcg PO DAILY Centrum Silver 0.4 mg-300 mcg- 250 mcg tablet 1 tab PO DAILY omega 3-rfh-svp-fish oil [Fish Oil] 1,200 (144-216) mg capsule 1 cap PO DAILY magnesium 250 mg tablet 250 mg PO DAILY calcium carbonate 600 mg calcium (1,500 mg) tablet 600 mg PO DAILY cholecalciferol (vitamin D3) [Vitamin D3] 25 mcg (1,000 unit) capsule 25 mcg PO DAILY albuterol sulfate [Ventolin HFA] 90 mcg/actuation HFA aerosol inhaler 2 puff INHALATION Q4H PRN PRN (Reason: dyspnea) Referrals / Follow Up: Trent Mckinney MD [Primary Care Provider] - Disposition Disposition (needs filled in before D/C Order can be placed): Home, Self Care
--- NOTE | 2024-07-18 09:57 | OP.PCM_ITS ---
Problems Associated Problem List Diagnoses (1) Inguinal hernia of right side without obstruction or gangrene: Procedures Digestive [id number]: [id number] Lap ing hernia repair init Operative Report (Standard) Operative Information Date of Procedure: 07/18/24 Pre-Operative Diagnosis: Right inguinal hernia Post-Operative Diagnosis: Right inguinal hernia; intra-abdominal adhesions Surgery/Procedure Performed: 1. Robotic assisted right inguinal hernia repair with mesh 2. laparoscopic lysis of adhesions naval special warfare medic: Yes Plaster Machine Operator: Ellen Elizabeth Tasks completed by academic support assistant: Closing Additional behavioral health assistant?: No Type of Anesthesia: General RN Documented Start/Stop Times: Operation Date: 07/18/24 07:30 Case Time Into Pre-Op 07/18/24 05:58 Out of Pre-Op 07/18/24 07:34 Anesthesia Start 07/18/24 07:37 Into Room 07/18/24 07:37 Procedure Start 07/18/24 07:59 Procedure End 07/18/24 09:22 Anesthesia End 07/18/24 09:28 Out of Room 07/18/24 09:28 Into Recovery 07/18/24 09:31 Procedure Start Time: 07:59 Procedure Stop Time: 09:22 Select all DRAINS/GRAFTS/IMPLANTS that apply: Implanted device Implanted device details: ProGrip mesh Special Medications: 2 g Ancef Estimated Blood Loss: 10 mL Fluids Replaced: None Specimen collected: No Description of surgery: The patient is a 69-year-old female who recently was seen in the office with a right inguinal hernia. I offered her a robotic right inguinal hernia repair with mesh. We discussed the details of the planned procedure and she wished to proceed. We also discussed the risk benefits and alternatives to surgery. Patient was brought to the operating room today following informed consent. Preoperative antibiotics were given timeout was performed. She was placed supine on the operative table with arms outstretched on arm boards. The abdomen is then prepped and draped in the usual sterile manner. A 5 mm incision was made just above the umbilicus through which a 5 mm trocar was placed optically. This was placed without incident. Once in place the abdomen is then insufflated with CO2 gas. A 5 mm 0 degree scope was inserted and no obvious bowel or vascular injury was noted. It was noted however that she had adhesions to the lower midline incision that she had from her hysterectomy years ago. I was able to place another trocar under direct visualization in the right lower quadrant. Through this I was able to take down some of the adhesions laparoscopically using scissors. I was then able to place a third trocar in the left side of the abdomen. We are then able to docked the robot and I was able to take down the remainder of the adhesions. The lyse of adhesions probably added 30 to 45 minutes to the length of the surgery. Once this was performed the right inguinal hernia was visualized. The peritoneum was then incised using scissors and electrocautery in a lateral to medial direction. Subperitoneal plane was developed and the direct hernia was identified and reduced. Charles's ligament was dissected medially. I attempted to get the peritoneum off of the round ligament however this was densely adherent. I have eventually transected the round ligament so that I could place the mesh. The mesh selected was a ProGrip mesh. This was inserted after being placed in antibiotic solution. This was laid into position. This covered over the fascial defect nicely. The perito neum was then closed in a running manner using a V-Loc suture. This closed the peritoneum nicely. At the completion of the procedure again noted bowel or vascular injury was noted and the trocars were removed. Local anesthetic was injected and the incisions were closed with 5-0 Vicryl. Skin glue was applied as dressing. She was awakened anesthesia and taken the PACU in good condition An LAB PACK CHEMIST was utilized as a metal moulder's assistant. Her role included holding the camera and docking the robot as well as skin closure Surgical Findings: See operative note Complications Complications: No Admit VTE Documentation VTE Present on Admission: No VTE Mechan Device Prophylaxis: SCD's VTE Pharm Prophylaxis ordered?: No
--- NOTE | 2024-07-18 10:08 | PCM.POST.ANE ---
Anesthesia: Postop Eval I Current Vital Signs Temperature: 98 F Pulse Rate: 84 Blood Pressure: 130/108 Respiratory Rate: 18 Pulse Ox: 98 Oxygen Delivery Method: Simple Mask Oxygen Flow Rate (L/min): 6 Assessment Airway patent: Yes Spontaneous unlabored respirations: Yes Mental status: Awake and Calm nausea: No Vomiting: No Anesthesia Complication: No Fluid Hydration Crystalloid volume administer (ml): 1,000 Total IV fluid infused: 1,000 Progress Note Anesthesia document: Postop Eval 1 completed: Yes
--- NOTE | 2024-07-18 10:34 | POSTOPAN2_ITS ---
Anesthesia Postop Eval I Sum Postop Eval Completion status Anesthesia document: Postop Eval 1 completed: Yes Anesthesia Postop Eval I Summary Anesthesia Postop Eval I Summary: Anesthesia Postop Eval I: Assessment Summary Airway patent Yes 07/18/24 10:08 CORK TILE FLOOR LAYER.[email or web address] Spontaneous unlabored Yes 07/18/24 10:08 CORK TILE FLOOR LAYERELENA respirations Mental status Awake,Calm 07/18/24 10:08 CORK TILE FLOOR LAYER.[email or web address] nausea No 07/18/24 10:08 CORK TILE FLOOR LAYER.TAZ Vomiting No 07/18/24 10:08 ADAN Anesthesia Postop Eval I: Fluid Summary Crystalloid volume administer 1,000 07/18/24 10:08 ADAN (ml) Colloids volume administered ( ml) Blood Product volume administered (ml) Total IV fluid infused 1,000 07/18/24 10:08 ADAN Anesthesia Postop Eval I: Summary Notes Anesthesia Complication No 07/18/24 10:08 ADAN Anesthesia Complication Comment: Post-operative progress note Anesthesia: Postop Eval II Evaluation Mental status: Awake Pain Level: 0 nausea: No Vomiting: No
== END 2024-07-18 13:15 | disposition home or self-care (01) ==
LOC: SDC 05:36 → AC 05:37
PROVIDERS: Anesthesiology; PCP Family Medicine; Referring Provider Surgery; Visit Provider Surgery
PROC: (CPT 49650; principal; 2024-07-18 07:10)
DX: K40.90 Unilateral inguinal hernia, without obstruction or gangrene, not specified as recurrent (principal); K66.0 Peritoneal adhesions (postprocedural) (postinfection); Z87.891 Personal history of nicotine dependence; J45.909 Unspecified asthma, uncomplicated; Z79.890 Hormone replacement therapy; E07.9 Disorder of thyroid, unspecified
CPT/HCPCS: 49650; S2900; 00830; 36415; 80048; 84443; 85027; 93005; J2405

== ENCOUNTER → 2024-10-14 | Outpatient (CLI) | payer MEDICARE, OTHER, SELFPAY ==
[2024-10-14 11:10] LABS: ALB/GLOB Ratio 1.3 RATIO (0.9-2.4); AST(SGOT) 23 U/L (<=31); Alanine Aminotransfer ALT/SGPT 20 U/L (<=34); Albumin, Serum 3.9 g/dL (3.4-4.8); Alkaline Phosphatase 91 U/L (35-104); Anion Gap 10 (5-15); BUN 13 mg/dL (4-19); BUN/Creat Ratio 21.6 RATIO (10-20); Calcium,Total 9.5 mg/dL (7.6-11.0); Carbon Dioxide 23.5 mmol/L (21.0-32.0); Chloride 106 mmol/L (98-108); EST Glomerular Filtration Rate 98 (>60); Globulin 2.9 g/dL (2.2-4.2); Glucose 87 mg/dL (70-99); Potassium 4.6 mmol/L (3.3-5.1); Protein, Total 6.8 g/dL (5.9-8.4); Sodium Level 139 mmol/L (133-145); Total Bilirubin 0.26 mg/dL (0.00-1.30)
[2024-10-15 16:09] LABS: Deamidated Gliadin IgA >150 units (0-19); Deamidated Gliadin IgG 91 units (0-19); Endomysial Antibody IgA Positive (Negative); Immunoglobulin A 99 mg/dL (87-352); t-Transglutaminase IgA 61 U/mL (0-3)
== END | disposition home or self-care (01) ==
LOC: LAB 10:16
PROVIDERS: PCP Family Medicine; Referring Provider Internal Medicine Gastroenterology; Visit Provider Internal Medicine Gastroenterology
DX: D64.9 Anemia, unspecified (principal); K59.00 Constipation, unspecified
CPT/HCPCS: 36415; 80053; 82784; 83516; 86255

== ENCOUNTER → 2024-11-15 | Outpatient (CLI) | payer MEDICARE, OTHER, SELFPAY ==
[2024-11-15 16:54] LABS: Thyroid Stim Hormone (TSH) 0.044 uIU/mL (0.300-4.200)
== END | disposition home or self-care (01) ==
LOC: MFPLAB 10:43
PROVIDERS: PCP Family Medicine; Referring Provider Family Medicine; Visit Provider Family Medicine
DX: E03.9 Hypothyroidism, unspecified (principal)
CPT/HCPCS: 36415; 84443

== ENCOUNTER → 2025-01-01 | Outpatient (CLI) | payer MEDICARE, OTHER, SELFPAY ==
[2025-01-01 11:18] LABS: Thyroid Stim Hormone (TSH) 0.047 uIU/mL (0.300-4.200)
== END | disposition home or self-care (01) ==
LOC: LAB 09:49
PROVIDERS: PCP Family Medicine; Referring Provider Family Medicine; Visit Provider Family Medicine
DX: E03.9 Hypothyroidism, unspecified (principal)
CPT/HCPCS: 36415; 84443

== ENCOUNTER → 2025-02-24 | Outpatient (CLI) | payer MEDICARE, OTHER, SELFPAY | END | disposition home or self-care (01) | LOC: LAB 09:59 | PROVIDERS: PCP Family Medicine; Referring Provider Family Medicine; Visit Provider Family Medicine | DX: E03.9 Hypothyroidism, unspecified (principal) | CPT/HCPCS: 36415; 84443 ==

== ENCOUNTER → 2025-04-14 | Outpatient (CLI) | payer MEDICARE, OTHER, SELFPAY | END | disposition home or self-care (01) | LOC: LAB 09:53 | PROVIDERS: PCP Family Medicine; Referring Provider Family Medicine; Visit Provider Family Medicine | DX: E03.9 Hypothyroidism, unspecified (principal) | CPT/HCPCS: 36415; 84443 ==